=== PATIENT | male | born 1985 | race Caucasian/White ===

== ENCOUNTER 2018-04-09 21:36 | Emergency (ER) | payer BC, OTHER ==
[~2018-04-09] VITALS: Ht 182.9 cm; Wt 79.4 kg
[2018-04-09] MEDS ORDERED: NOHOMEMEDICATIONS (21:54)
[2018-04-09] MEDS ORDERED: ALEVE220 MG PO (22:21)
[2018-04-09 22:49] VITALS: BP 111/72
== END 2018-04-09 22:49 | disposition home or self-care (01) ==
LOC: ER 21:36
DX: S76.312A Strain of muscle, fascia and tendon of the posterior muscle group at thigh level, left thigh, initial encounter (principal); Z88.6 Allergy status to analgesic agent; Z88.8 Allergy status to other drugs, medicaments and biological substances; Z91.018 Allergy to other foods; Z90.49 Acquired absence of other specified parts of digestive tract; W17.89XA Other fall from one level to another, initial encounter; Y93.31 Activity, mountain climbing, rock climbing and wall climbing; Y92.89 Other specified places as the place of occurrence of the external cause; Y99.8 Other external cause status